=== PATIENT | male | born 1985 | race Caucasian/White ===

== ENCOUNTER → 2018-12-14 | Outpatient (CLI) | payer BC ==
--- NOTE | 2018-12-14 16:30 | MR ---
EXAMINATION TYPE: MR knee RT wo con DATE OF EXAM: 12/14/2018 COMPARISON: Outside right knee x-ray December 02, 2018 HISTORY: R knee pain per order. Inner pain for several years per patient. TECHNIQUE: Multiplanar, multisequence images of the knee is performed without IV contrast. FINDINGS: MEDIAL MENISCUS: Anterior and posterior horns are intact without tear. LATERAL MENISCUS: Anterior and posterior horns are intact without tear. CRUCIATE LIGAMENTS: The anterior and posterior cruciate ligaments are intact and unremarkable. COLLATERAL LIGAMENTS: The medial collateral ligament and lateral collateral ligament complex are inta ct and unremarkable. EXTENSOR MECHANISM: Visualized quadriceps and patellar tendons are intact. EFFUSION: There is small suprapatellar joint effusion. POPLITEAL CYST: No popliteal/cox cyst. TRICOMPARTMENT SPACES: Tricompartment joint spaces are fairly well-maintained. No significant spurrin g. CARTILAGE: Tricompartmental articular cartilage is preserved. BONE MARROW SIGNAL: No focal abnormal marrow signal is appreciated. OTHER: No additional significant abnormality is appreciated. IMPRESSION: No meniscal or ligamentous tear is seen.
== END | disposition home or self-care (01) ==
LOC: RADMRIMAIN 06:35
PROVIDERS: ATTEND Orthopaedic Surgery
DX: M25.561 Pain in right knee (principal)

== ENCOUNTER → 2019-08-22 | Outpatient (CLI) | payer BC ==
[2019-08-22 09:47] LABS: Potassium 4.6 mmol/L (3.5-5.1)
[2019-08-22 09:57] LABS: Basophils % (A) 0 %; Eosinophils # (A) 0.1 k/uL (0-0.7); Eosinophils % (A) 2 %; HCT 46.4 % (39.0-53.0); HGB 15.6 gm/dL (13.0-17.5); Lymphocytes # (A) 1.9 k/uL (1.0-4.8); Lymphocytes % (A) 28 %; MCH 31.3 pg (25.0-35.0); MCHC 33.7 g/dL (31.0-37.0); MCV 93.1 fL (80.0-100.0); Mean Platelet Volume 7.6; Monocytes # (A) 0.4 k/uL (0-1.0); Monocytes % (A) 6 %; Neutrophils # (A) 4.1 k/uL (1.3-7.7); Neutrophils % (A) 62 %; Platelet Count 286 k/uL (150-450); RBC 4.99 m/uL (4.30-5.90); RDW 12.4 % (11.5-15.5); WBC 6.6 k/uL (3.8-10.6)
== END | disposition home or self-care (01) ==
LOC: LABWHC1 08:31
PROVIDERS: ATTEND Orthopaedic Surgery
DX: Z01.818 Encounter for other preprocedural examination (principal); M23.91 Unspecified internal derangement of right knee
CPT/HCPCS: 80051; 85025; 36415; U0003

== ENCOUNTER → 2019-08-24 | Day surgery (SDC) | payer BC ==
[2019-08-23 08:18] VITALS: BMI 35.9
--- NOTE | 2019-08-23 14:11 | HP ---
HISTORY AND PHYSICAL DATE OF SURGERY: 08/24/2019. Mustapha Chahal is a 34-year-old patient seen with progressive right knee pain. We discussed options for treatment. He elected to proceed with arthroscopy. Consent was obtained. PAST MEDICAL HISTORY: Hypertension. PAST SURGICAL HISTORY: Noncontributory. DAILY MEDICATIONS: Atorvastatin, indomethacin. ALLERGIES: None. SOCIAL HISTORY: Denies current tobacco use. PHYSICAL EVALUATION OF THE RIGHT KNEE: Range of motion is 0-130. Mild effusion. Tenderness along the medial and lateral joint lines. Positive medial Wendi's. Positive lateral Wendi's. His ligaments are stable. Hip rotation is without pain. His distal neurovascular exam is intact. RADIOGRAPHS OF THE RIGHT KNEE: Reveal mild osteoarthritis. MRI right knee failed to reveal any abnormality. IMPRESSION: Internal derangement, right knee with meniscal tear versus osteochondral tear. PLAN: Right knee arthroscopy with partial meniscectomy versus chondroplasty and debridement. MMODL / IJN: [id number] /
[~2019-08-24] MED LIST: BUPIVACAINE (PF) 0.25% 30 ML VIAL SQ ONE; DEXAMETHASONE SOD PHOSPHATE 10 MG/ML 1 ML VIAL IV ONE; HYDROmorphone 0.5 MG/0.5 ML SYRINGE IVP PRN; LACTATED RINGERS 1,000 ML IV SCH; LIDOCAINE 1% INJ 10MG/ML (20 ML MDV) ONE; MIDAZOLAM 2 MG/2 ML VIAL ONE; ONDANSETRON 4 MG/2 ML VIAL IVP ONE; PROPOFOL 10 MG/ML 20 ML VIAL IV ONE; SUCCINYLCHOLINE CHLORIDE 100 MG/5 ML SYR IV ONE; fentaNYL (PF) 50 MCG/ML 2 ML AMP ONE
[2019-08-24 09:15] VITALS: RESP 16
--- NOTE | 2019-08-24 11:35 | P.OP ---
Date of Procedure: 08/24/19 Preoperative Diagnosis: Internal derangement right knee Postoperative Diagnosis: 1. Tear lateral meniscus right knee 2. Grade 2/3 chondromalacia medial femoral condyle right knee 3. Grade 2 chondromalacia patella right knee 4. Reactive synovitis medial, lateral and suprapatellar compartments right knee Procedure(s) Performed: 1. Arthroscopic partial lateral meniscectomy right knee 2. Arthroscopic chondroplasty medial femoral condyle right knee 3. Arthroscopic chondroplasty patella right knee Anesthesia: LUZA, local Surgeon: Quinten Parmar Estimated Blood Loss (ml): 6 Pathology: none sent Condition: stable Disposition: PACU Indications for Procedure: 34-year-old patient seen with progressive right knee pain. After treatment options were discussed, she elected to proceed with arthroscopy. Operative Findings: see description of procedure Description of Procedure: Patient was taken to the operative suite. Patient underwent a general anesthetic by the department of anesthesia. Patient was given preoperative antibiotics. The right lower extremity was placed in a well-padded arthroscopic leg [place]. The right leg was prepped and draped in the normal sterile orthopedic fashion. A lateral parapatellar and suprapatellar incision was made. Trochars were inserted. Arthroscopy was initiated. Suprapatellar pouch revealed diffuse thick reactive synovitis. The patellofemoral joint appeared to articulate congruently. There was grade 2 chondromalacia of the patella with some small osteochondral tears present. The scope was guided into the medial gutter. No loose bodies or plica were identified. The scope was then guided into the medial compartment. A medial parapatellar incision was made. Trocar inserted followed by probe. The medial meniscus was probed and found to be stable. There were grade 2/3 chondromalacia changes of the medial femoral condyle with some osteochondral flap tears present. There was thick reactive synovitis anteriorly. I performed a chondroplasty of the medial femoral condyle. I performed a partial synovectomy decompressing thick reactive synovitis. The residual osteochondral surface was stable. There was good decompression of the synovitis. Scope and probe were then guided into the intercondylar notch. Cruciates were identified, probed and found to be stable. The scope and probe were then guided into lateral compartment. Lateral meniscus revealed a radial tear midbody area. There was no chondromalacia. There was thick reactive synovitis anteriorly. I performed a partial lateral meniscectomy. I performed a partial synovectomy. The residual meniscus was stable. There was good decompression of the synovitis. The scope was in guided back into the suprapatellar compartment. I introduced a motorized shaver into the suprapatellar compartment. I debrided some small piecemeal fragments of meniscus I encountered. I performed a chondroplasty of the patella. I performed a partial synovectomy. Shaver was removed. There was good decomp ression of synovitis. I took one more look around the entire knee, no residual debris. Instruments were now removed from the joint. The joint was infiltrated with .25% Marcaine. Steri-Strips were applied to the portal sites. Sterile dressings were applied. The patient was placed into a JESE hose. No tourniquet was utilized. The patient was awakened, transferred to a bed and taken to recovery stable satisfactory condition.
[2019-08-24 11:45] VITALS: TEMP 97.8
[2019-08-24 12:55] VITALS: BP 143/87; PULSE 71
== END | disposition home or self-care (01) ==
LOC: OR 08:45
PROVIDERS: ATTEND Orthopaedic Surgery
DX: M23.200 Derangement of unspecified lateral meniscus due to old tear or injury, right knee (principal); M22.41 Chondromalacia patellae, right knee; M65.861 Other synovitis and tenosynovitis, right lower leg; I10 Essential (primary) hypertension; E78.5 Hyperlipidemia, unspecified; J45.909 Unspecified asthma, uncomplicated; K21.9 Gastro-esophageal reflux disease without esophagitis; Z79.899 Other long term (current) drug therapy; Z88.5 Allergy status to narcotic agent
CPT/HCPCS: 29881; J2250; J1100; J0690; J2405; J2001; J3010; J0330; J2704

== ENCOUNTER 2019-08-30 11:21 | Emergency (ER) | payer BC ==
--- NOTE | 2019-08-30 11:23 | US ---
EXAMINATION TYPE: US venous doppler duplex LE RT DATE OF EXAM: 08/30/2019 11:04 AM COMPARISON: NONE CLINICAL HISTORY: 34-year-old male M79.661 PAIN IN RT LOWER LIMB. Right calf pain x 2 days and is pos t right knee arthroscopy. SIDE PERFORMED: right TECHNIQUE: The lower extremity deep venous system is examined utilizing real time linear array sonog yevgeniy with graded compression, doppler sonography and color-flow sonography. FINDINGS: VESSELS IMAGED: ) Common Femoral Vein Deep Femoral Vein Greater Saphenous Vein * Femoral Vein Popliteal Vein Small Saphenous Vein * Proximal Calf Veins (* superficial vessels) Right Leg: Positive for DVT in paired posterior tibial veins as veins are non compressible and no co merna flow patentcy is noted mid calf. Upper anterior right calf PTV echoes are noted within anterior v ein then internal echoes are noted in both PTV at mid calf. Tech findings called to nurse Jose at Dr Parmar [facility] and patient advised to seek treatment in [facility] department per Dr [facility]. JJ IMPRESSION: Exam positive for DVT within the posterior tibial veins of the upper and mid right calf.
[2019-08-30 11:27] VITALS: BP 152/83; PULSE 79; RESP 16; TEMP 99.1
--- NOTE | 2019-08-30 11:46 | ED ---
Extremity Problem HPI - General Chief complaint: Extremity Problem,Nontraumatic Stated complaint: DVT Time Seen by Provider: 08/30/19 11:27 Source: patient, RN notes reviewed, old records reviewed Mode of arrival: wheelchair Limitations: no limitations - History of Present Illness Initial comments: Pleasant 34-year-old male presents emergency department today for a golf with concern of positive ultrasound for a DVT. He had missed meniscus repair done by Dr. Monica Diaz last week. He complained of some calf pain and was sent in for outpatient ultrasound. He was then transferred to the emergency department with positive DVT. DVT extends from the posterior tibial veins it through the upper calf. He reports that he has a well-appearing incision site and no pain with range of motion of the knee. Patient has had no previous blood clots. He denies any chest pain or shortness of breath. He denies any bloody stools. - Related Data Home Medications Medication Instructions Recorded Confirmed Atorvastatin(Unknown Dose) 1 tab PO DAILY 08/23/19 08/23/19 Fenofibrate 160 mg PO DAILY 08/23/19 08/23/19 Glucosamine Sulfate 500 mg PO DAILY 08/23/19 08/23/19 Montelukast Sodium [Singulair] 10 mg PO QAM 08/23/19 08/23/19 Multivitamins, Thera [Multivitamin 1 tab PO DAILY 08/23/19 08/23/19 (formulary)] Previous Rx's Medication Instructions Recorded HYDROcodone/APAP 7.5-325MG [[place] 1 each PO Q6HR PRN #20 tab 08/24/19 7.5] Apixaban [Eliquis Starter Pack 0 mg PO DIRECTED 30 Days #1 pack 08/30/19 (for VTE)] Allergies Allergy/AdvReac Type Severity Reaction Status Date / Time hydromorphone [From Dilaudid] AdvReac Nausea & Verified 08/30/19 11:23 Vomiting Review of Systems ROS Statement: Those systems with pertinent positive or pertinent negative responses have been documented in the HPI. ROS Other: All systems not noted in ROS Statement are negative. 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 Alert and oriented. No distress. Limitations: no limitations General appearance: alert, in no apparent distress Head exam: Present: atraumatic, normocephalic, normal inspection Eye exam: Present: normal appearance, PERRL, EOMI. Absent: scleral icterus, conjunctival injection, periorbital swelling ENT exam: Present: normal exam, mucous membranes moist Neck exam: Present: normal inspection. Absent: tenderness, meningismus, lymphadenopathy Respiratory exam: Present: normal lung sounds bilaterally. Absent: respiratory distress, wheezes, rales, rhonchi, stridor Cardiovascular Exam: Present: regular rate, normal rhythm, normal heart sounds. Absent: systolic murmur, diastolic murmur, rubs, gallop, clicks GI/Abdominal exam: Present: soft, normal bowel sounds. Absent: distended, tenderness, guarding, rebound, rigid Extremities exam: Present: normal inspection, full ROM, normal capillary refill. Absent: tenderness, pedal edema, joint swelling, calf tenderness Right Knee exam: Absent: normal inspection (Well-appearing incision site with Steri- Strips over the laceration. No erythema. Some swelling is noted by Patient does have range of motion without any pain.), tenderness Lower Leg exam: Present: normal inspection, full ROM, tenderness (Patient has some tenderness in the posterior calf. No erythema.) Ankle exam: Present: normal inspection, full ROM Back exam: Present: normal inspection Neurological exam: Present: alert, oriented X3, CN II-XII intact Psychiatric exam: Present: normal affect, normal mood Skin exam: Present: warm, dry, intact, normal color. Absent: rash Course Vital Signs 08/30/19 11:23 Temperature 99.1 F Pulse Rate 79 Respiratory 16 Rate Blood Pressure 152/83 O2 Sat by Pulse 99 Oximetry Medical Decision Making - Medical Decision Making Pleasant 34-year-old male presents for his from us today with positive ultrasound with DVT on the right leg. He has no chest pain or shortness of breath. QT is provoked by recent meniscus repair surgery by Dr. Monica Diaz. He has no bloody stools. Discussed Patient could benefit and would be a good candidate for oral anticoagulation therapy with eliquis. He is given an L Edu one-month starter pack and given return precautions including chest pain or shortness of breath. I discussed following up with his orthopedic. - Radiology Data Radiology results: report reviewed Ultrasound shows positive DVT within the posterior tibial veins of the upper and mid right calf. Disposition Clinical Impression: Right leg DVT Disposition: HOME SELF-CARE Condition: Good Instructions (If sedation given, give patient instructions): Deep Vein Thrombosis (ED) Additional Instructions: Please use medication as discussed. Please follow up with family doctor if symptoms have not improved over the next two days. Please return to the emerg ency room if your symptoms increase or worsen or for any other concerns. Prescriptions: Apixaban [Eliquis Starter Pack (for VTE)] 0 mg PO DIRECTED 30 Days #1 pack Is patient prescribed a controlled substance at d/c from ED?: No Referrals: Nelson Allen MD [Primary Care Provider] - 1-2 days Time of Disposition: 11:46
== END 2019-08-30 11:52 | disposition home or self-care (01) ==
LOC: EC 11:21
DX: I82.441 Acute embolism and thrombosis of right tibial vein (principal); I82.4Z1 Acute embolism and thrombosis of unspecified deep veins of right distal lower extremity; E78.5 Hyperlipidemia, unspecified; Z88.5 Allergy status to narcotic agent; Z79.01 Long term (current) use of anticoagulants; Z79.899 Other long term (current) drug therapy; Z98.890 Other specified postprocedural states
CPT/HCPCS: 99284

== ENCOUNTER → 2020-04-19 | Outpatient (CLI) | payer BC | END | disposition home or self-care (01) | LOC: LABWHC1 07:10 | PROVIDERS: ATTEND Otolaryngology Otology & Neurotology | DX: Z01.812 Encounter for preprocedural laboratory examination (principal) | CPT/HCPCS: U0003; C9803; U0005 ==

== ENCOUNTER → 2020-05-30 | Outpatient (CLI) | payer BC ==
[2020-05-30 12:16] LABS: Immunoglobulin E 2.37 IU/mL (0.00-114.00)
[2020-05-30 12:19] LABS: Chol/HDL Ratio 4.14; LDL Cholesterol,Calculated 80.8 mg/dL (0.0-131.0); VLDL Calculation 32.2 mg/dL (5.00-40.00)
[2020-05-30 14:23] LABS: INR 1.05 (0.90-1.11); Partial Thromboplastin Time 31.6 sec (23.5-31.0); Prothrombin Time 11.4 sec (9.9-11.9)
[2020-05-30 15:40] LABS: Cardiolipin Ab IgG Interp NEGATIVE (NEGATIVE); Cardiolipin Ab IgM Interp NEGATIVE (NEGATIVE); Cardiolipin IgA Antibody <0.5 U/mL; Cardiolipin IgM Antibody 0.2 U/mL
[2020-05-31 12:06] LABS: Protein C (Activity) 87 % (71-138)
[2020-05-31 13:33] LABS: Anti-Thrombin III Antigen 38 % (80 - 120)
[2020-05-31 13:51] LABS: APTT 40 Sec(s) (<43); DRVVT 1:1 Mix 44 Sec(s) (<44); Dilute Russell Viper Venom 60 Sec(s) (<44)
== END | disposition home or self-care (01) ==
LOC: LABWHC1 07:13
PROVIDERS: ATTEND Family Medicine
DX: E78.2 Mixed hyperlipidemia (principal); D68.69 Other thrombophilia
CPT/HCPCS: 36415; 80061; 81240; 81241; 82550; 82784; 82785; 84460; 85301; 85303; 85306; 85610; 85613; 85730; 86147

== ENCOUNTER → 2021-11-12 | Outpatient (CLI) | payer BC ==
--- NOTE | 2021-11-13 11:08 | MR ---
EXAMINATION TYPE: MR knee LT wo con DATE OF EXAM: 11/12/2021 COMPARISON: Knee radiograph 10/28/2021 HISTORY: Left inner knee pain. TECHNIQUE: Multiplanar, multisequence imaging of the left knee is performed without IV contrast. FINDINGS: MEDIAL MENISCUS: Anterior and posterior horns are intact without tear. LATERAL MENISCUS: Anterior and posterior horns are intact without tear. CRUCIATE LIGAMENTS: The anterior and posterior cruciate ligaments are intact and unremarkable. COLLATERAL LIGAMENTS: The medial collateral ligament is intact. There is increased PD signal is seen within the lateral collateral ligament at its femoral attachment. The ligament is intact. EXTENSOR MECHANISM: Visualized quadriceps and patellar tendons are intact. EFFUSION: Small suprapatellar joint effusion. POPLITEAL CYST: Small Foster's cyst noted measuring 34 x 3 mm. CARTILAGE: Mild cartilage thinning at the medial patellar ridge cartilage of the medial and lateral j oints are relatively intact. BONE MARROW SIGNAL: No focal abnormal marrow signal is appreciated. OTHER: Increased PD signal in the infrapatellar fat. Streaky PD signal seen throughout the leg most pronounced along the medial aspect at the level of the knee joint. IMPRESSION: 1. Streaky subcutaneous changes edema most pronounced in the medial aspect. No organizing fluid phillip ection. No additional finding in the medial aspect to to correlate with the patient's pain. MCL is in tact. 2. Low-grade injury to the femoral attachment of the lateral collateral ligament. The ligament is in tact. 3. Infrapatellar fat pad edema laterally, correlate for fat pad impingement. 4. ACL and PCL are intact.
== END | disposition home or self-care (01) ==
LOC: RADMRIMAIN 18:43
PROVIDERS: ATTEND Orthopaedic Surgery
DX: S83.422A Sprain of lateral collateral ligament of left knee, initial encounter (principal); X58.XXXA Exposure to other specified factors, initial encounter

== ENCOUNTER → 2022-02-17 | Outpatient (CLI) | payer BC ==
--- NOTE | 2022-02-17 07:07 | MR ---
EXAMINATION TYPE: MR knee RT wo con DATE OF EXAM: 02/17/2022 COMPARISON: Prior MRI right knee December 14, 2018 HISTORY: Rt knee pain. Pain in both knees for 2 years per patient. TECHNIQUE: Multiplanar, multisequence images of the knee is performed without IV contrast. FINDINGS: MEDIAL MENISCUS: Some faint increase horizontal signal posterior horn this does not extend to articul ar surface. LATERAL MENISCUS: Anterior and posterior horns are intact without tear. CRUCIATE LIGAMENTS: The anterior and posterior cruciate ligaments are intact and unremarkable. COLLATERAL LIGAMENTS: The medial collateral ligament and lateral collateral ligament complex are inta ct and unremarkable. EXTENSOR MECHANISM: Visualized quadriceps and patellar tendons are intact. EFFUSION: Small size suprapatellar joint effusion. POPLITEAL CYST: No popliteal/cox cyst. TRICOMPARTMENT SPACES: Tricompartment joint spaces are maintained. No significant spurring is seen. CARTILAGE: Focal partial cartilaginous defect or injury distal medial femoral condyle measuring 5 mm AP diameter sagittal image 11 x 6 mm transversely coronal image 21. BONE MARROW SIGNAL: No focal abnormal marrow signal is appreciated. OTHER: No additional significant abnormality is appreciated. IMPRESSION: 1. Probable intrasubstance tear posterior horn medial meniscus, cannot entirely exclude full-thicknes s meniscal tear. 2. New focal 6 mm cartilaginous injury distal medial femoral condyle as detailed above. 3. Stable small sized suprapatellar joint effusion.
== END | disposition home or self-care (01) ==
LOC: RADMRIMAIN 05:57
PROVIDERS: ATTEND Orthopaedic Surgery
DX: S89.91XA Unspecified injury of right lower leg, initial encounter (principal); M25.561 Pain in right knee; M25.461 Effusion, right knee